=== PATIENT | female | born 1970 | race Caucasian/White ===

== ENCOUNTER 2018-12-26 09:52 | Emergency (ER) | payer OTHER, MEDICARE ==
[2018-12-26 10:23] VITALS: BP 116/78
[2018-12-26] MEDS ORDERED: Acetaminophen TAB* 325 MG PO ONE (10:48)
--- NOTE | 2018-12-26 10:52 | UC ---
FLU HPI - HPI Summary HPI Summary: 48-year-old female comes in with a chief complaint of fevers body aches chest heaviness and feeling very ill. Patient had upper respiratory tract infection symptoms little more than a week ago and was treated with Bactrim and she improved from that finished the Bactrim 2 days ago. Last evening had sudden onset of body aches and fevers and chest heaviness and overall feeling really bad. She does have a cough. She's not hearing any chest congestion. She does have asthma and has used her inhalers which does help with the cough some. She' s had Legionella pneumonia or than 10 years ago and had asthma ever since then. - History of Current Complaint Chief Complaint: UCRespiratory Stated Complaint: COUGH (HAS COPD) Time Seen by Provider: 12/26/18 10:28 Hx Last Menstrual Period: 08/2015 Pain Intensity: 5 - Allergy/Home Medications Allergies/Adverse Reactions: Allergies Allergy/AdvReac Type Severity Reaction Status Date / Time Penicillins Allergy Hives Verified 12/26/18 10:24 avoids NSAIDs Allergy Unknown Uncoded 12/26/18 10:44 Reaction Details Home Medications: Home Medications Albuterol HFA INHALER* [Ventolin HFA Inhaler*] 2 puff INH Q4H PRN 12/26/18 [ History Confirmed 12/26/18] Hydrocodone/Acetaminophen [Vicodin 5-300 mg Tablet] 1 each PO BID 12/26/18 [ History Confirmed 12/26/18] Sulfamethox/Trimethoprim DS* [Bactrim DS 800/160 TAB*] 1 tab PO BID 12/26/18 [ History Confirmed 12/26/18] PMH/Surg Hx/FS Hx/Imm Hx Previously Healthy: Yes Respiratory History: Asthma, Pneumonia GI/ History: Gastroesophageal Reflux - Surgical History Surgical History: Yes Surgery Procedure, Year, and Place: hysterectomy 08/2015; right rotator cuff, right thumb fx, anterior scalene muscle removed r/t thoracic outlet; right sphenous clot and subsequent removal, appy, cholecysectomy - Family History Known Family History: Negative: Cardiac Disease, Hypertension, Diabetes - Social History Alcohol Use: None Substance Use Type: None Smoking Status (MU): Former Smoker - Immunization History Most Recent Tetanus Shot: 2014 Review of Systems All Other Systems Reviewed And Are Negative: Yes Constitutional: Positive: Fever, Chills Skin: Positive: Negative Eyes: Positive: Negative ENT: Positive: Nasal Discharge Respiratory: Positive: Cough Cardiovascular: Positive: Other - CHEST PRESSURE Gastrointestinal: Positive: Negative Motor: Positive: Negative Neurovascular: Positive: Negative Musculoskeletal: Positive: Myalgia Neurological: Positive: Negative Psychological: Positive: Negative Is Patient Immunocompromised?: No Physical Exam Triage Information Reviewed: Yes Appearance: No Pain Distress, Well-Nourished, Ill-Appearing - MILD Vital Signs: Initial Vital Signs Temp 100.8 F 12/26/18 10:14 Pulse 105 12/26/18 10:14 Resp 24 12/26/18 10:14 BP 116/78 12/26/18 10:14 Pulse Ox 100 12/26/18 10:14 Vital Signs Reviewed: Yes ENT: Positive: Pharyngeal erythema, Nasal congestion, Nasal drainage, TMs normal Neck exam: Normal Neck: Positive: Supple Respiratory: Positive: Lungs clear, Normal breath sounds, No respiratory distress, Other: - DRY COUGH Cardiovascular: Positive: Tachycardia Musculoskeletal Exam: Normal Musculoskeletal: Positive: Strength Intact, ROM Intact Neurological Exam: Normal Neurological: Positive: Alert, Muscle Tone Normal Psychological Exam: Normal Psychological: Positive: Normal Response To Family, Age Appropriate Behavior Skin Exam: Normal Flu Course/Dx - Course Course Of Treatment: Patient Name: RAMON HENRY Medical Record#: [id number]. Ordering Physician: Guille Gill MD Acct.#: [id number]. : 1969 Age: 48 Sex: F Location: [facility]. Exam Date: 12/26/18 1030 ADM Status: REG ER. Order Information: CHEST PA LAT 2 VWS. Accession Number: [id number]. CPT: 50622. HISTORY: SOB,FEVER, COUGH. COMPARISONS: September. VIEWS: 4: Frontal dual-energy and lateral views of the chest. FINDINGS : CARDIOMEDIASTINAL SILHOUETTE: The cardiomediastinal silhouette is normal. HEENA: The heena are normal. PLEURA: The costophrenic angles are sharp. No pleural abnormalities are noted. LUNG PARENCHYMA: The lungs are clear. ABDOMEN : The upper abdomen is clear. There is no subphrenic gas. BONES AND SOFT TISSUES: Degenerative changes are noted along the spine. OTHER: None. IMPRESSION: NO ACTIVE CARDIOPULMONARY DISEASE. . <Electronically signed by Claude Jane MD in OV> 12/26/18 1044. I discussed the x-ray reports with the patient and her . Influenza was negative. Going to treat as a continued upper respiratory tract infection over the course of 10 days that is actually getting worse. Patient's prior history of pneumonia has for concerned of another pneumonia. Patient's allergic to penicillin. We discussed various antibiotic treatments that she personally on the Levaquin as this is what helped in the past. Also will do prednisone and she has albuterol inhaler. Follow-up with primary care doctor get reevaluated sooner if not improving or worse. - Differential Dx/Diagnosis Provider Diagnosis: Bronchitis, Asthma Discharge - Sign-Out/Discharge Documenting (check all that apply): Patient Departure All imaging exams completed and their final reports reviewed: Yes - Discharge Plan Condition: Stable Disposition: HOME Prescriptions: Benzonatate CAP* [Tessalon 100 MG CAP*] 100 mg PO TID PRN #20 cap PRN Reason: Cough Levofloxacin TAB* [Levaquin TAB*] 750 mg PO DAILY #7 tab predniSONE TAB* [Deltasone 20 MG TAB*] 40 mg PO DAILY #10 tab Patient Education Materials: Asthma (ED), Acute Bronchitis (ED) Referrals: [facility] [Outside] Additional Instructions: FOLLOW UP WITH YOUR DOCTOR IF NOT COMPLETELY IMPROVED. GO TO THE EMERGENCY DEPARTMENT FOR ANY WORSENING OF YOUR CONDITION OR QUESTIONS OR CONCERNS. - Billing Disposition and Condition Condition: STABLE Disposition: Home
[2018-12-26 10:58] LABS: Influenza A Molecular NEGATIVE (Negative); Influenza B Molecular NEGATIVE (Negative)
== END 2018-12-26 11:28 | disposition home or self-care (01) ==
LOC: UCCORT 09:52
DX: J45.909 Unspecified asthma, uncomplicated (principal); Z88.0 Allergy status to penicillin; Z88.8 Allergy status to other drugs, medicaments and biological substances; Z79.899 Other long term (current) drug therapy; Z87.891 Personal history of nicotine dependence
CPT/HCPCS: 71046; 99212; A9270-GY; G0463

== ENCOUNTER 2019-01-15 09:51 | Emergency (ER) | payer OTHER, MEDICARE ==
[2019-01-15 10:07] VITALS: BP 100/70
--- NOTE | 2019-01-15 10:40 | UC ---
Shortness of Breath HPI - HPI Summary HPI Summary: 48-year-old female presents with 2 week history of extreme fatigue. She states that she is having to take 2 hours every day and still sleeps through the night. She is also reporting that she has had some exertional shortness of breath. It was noted be most profound yesterday when she was attempting to climb a flight of 10 stairs and she had to rest while ascending. She states that she has also had some intermittent left arm pain as well as some intermittent nausea with 1-2 episodes of vomiting during the past 2 weeks. She states approximately one week ago she did have a temporary cap placed and has noted some left jaw pain since that time. Patient also recalls an episode a couple days ago where she felt as if "my blood sugar dropped out" because she had a feeling as if she was going to pass out. She states she rested and ate a candy bar with some improvement in her symptoms. She has had hypertension in the past however has been off medications since having a gastric bypass and losing weight. Denies fever, chills, dizziness, lightheadedness, cough, palpitations, chest pain, or abdominal pain. - History of Current Complaint Chief Complaint: UCGeneralIllness Stated Complaint: FATIGUE,SWOLLEN GLANDS Time Seen by Provider: 01/15/19 10:17 Hx Obtained From: Patient Hx Last Menstrual Period: 08/2015 - Allergy/Home Medications Allergies/Adverse Reactions: Allergies Allergy/AdvReac Type Severity Reaction Status Date / Time Penicillins Allergy Hives Verified 01/15/19 10:07 avoids NSAIDs Allergy Unknown Uncoded 01/15/19 10:07 Reaction Details PMH/Surg Hx/FS Hx/Imm Hx Cardiovascular History: Hypertension Respiratory History: Asthma GI/ History: Gastroesophageal Reflux Neurological History: Migraine Psychological History: Depression - Surgical History Surgical History: Yes Surgery Procedure, Year, and Place: hysterectomy 08/2015; right rotator cuff, right thumb fx, anterior scalene muscle removed r/t thoracic outlet; right sphenous clot and subsequent removal, appy, cholecysectomy - Family History Known Family History: Positive: Cardiac Disease - Mother [place] age 70 Negative: Hypertension, Diabetes, Respiratory Disease - Social History Occupation: Disabled Lives: With Family Alcohol Use: None Substance Use Type: None Smoking Status (MU): Light Every Day Tobacco Smoker Type: Cigarettes - Immunization History Most Recent Tetanus Shot: 2014 Review of Systems All Other Systems Reviewed And Are Negative: Yes Constitutional: Positive: Fatigue. Negative: Fever, Chills Skin: Negative: Rash ENT: Positive: Dental Pain. Negative: Sore Throat, Ear Ache, Nasal Discharge, Sinus Congestion, Sinus Pain/Tenderness Respiratory: Positive: Shortness Of Breath. Negative: Cough Cardiovascular: Positive: Other - Exertional dyspnea. Negative: Palpitations, Chest Pain Gastrointestinal: Positive: Vomiting, Nausea. Negative: Abdominal Pain, Diarrhea Genitourinary: Positive: Negative Musculoskeletal: Positive: Negative Neurological: Positive: Negative Is Patient Immunocompromised?: No Physical Exam - Summary Physical Exam Summary: GENERAL APPEARANCE: Well developed, overweight, alert and cooperative, and appears to be in no acute distress. EYES: Conjunctiva clear. No drainage. Vision is grossly intact. EARS: External auditory canals and tympanic membranes clear, hearing grossly intact. NOSE: No nasal discharge. THROAT: Pharynx normal No tonsilar inflammation, swelling, exudate, or lesions. Uvula midline. Oral cavity normal. Teeth and gingiva in good general condition. NECK: Neck supple, non-tender without lymphadenopathy. CARDIAC: Normal S1 and S2. No S3, S4 or murmurs. Rhythm is regular. There is no peripheral edema, cyanosis or pallor. Extremities are warm and well perfused. Capillary refill is less than 2 seconds. Peripheral pulses intact. LUNGS: Clear to auscultation without rales, rhonchi, wheezing or diminished breath sounds. ABDOMEN: Positive bowel sounds. Soft, nondistended, nontender. No guarding or rebound. No masses or hepatosplenomegally. MUSKULOSKELETAL: ROM intact to all extremities. No joint erythema or tenderness. Normal muscular development. Normal gait. SKIN: Skin normal color, texture and turgor with no lesions or eruptions. Triage Information Reviewed: Yes Vital Signs: Initial Vital Signs Temp 97.8 F 01/15/19 09:59 Pulse 92 01/15/19 09:59 Resp 18 01/15/19 09:59 BP 100/70 01/15/19 09:59 Pulse Ox 100 01/15/19 09:59 Vital Signs Reviewed: Yes Diagnostics - EKG Cardiac Rate: NL - Rate 81 Cardiac Rhythm: Sinus: Normal Ectopy: None ST Segment: Normal EKG Comparison: Other - No previous for comparison Summary of EKG Findings: NSR without ectopy, SERA, or T-wave abnormalities. Machine reads left axis deviation. Abnormal R-wave progression V1-V6. Shortness of Breath Dx - Course Course Of Treatment: 48-year-old female presents with 2 week history of extreme fatigue. She states that she is having to take 2 hours every day and still sleeps through the night. She is also reporting that she has had some exertional shortness of breath. It was noted be most profound yesterday when she was attempting to climb a flight of 10 stairs and she had to rest while ascending. She states that she has also had some intermittent left arm pain as well as some intermittent nausea with 1-2 episodes of vomiting during the past 2 weeks. She states approximately one week ago she did have a temporary cap placed and has noted some left jaw pain since that time. Patient also recalls an episode a couple days ago where she felt as if "my blood sugar dropped out" because she had a feeling as if she was going to pass out. She states she rested and ate a candy bar with some improvement in her symptoms. She has had hypertension in the past however has been off medications since having a gastric bypass and losing weight. Denies fever, chills, dizziness, lightheadedness, cough, palpitations, chest pain, or abdominal pain. Afebrile. Vital signs stable. Exam reveals an adult female in no acute distress with an overall unremarkable exam. Twelve-lead EKG was obtained which showed a normal sinus rhythm at a rate of 81 with no ectopy, ST elevation, T-wave abnormalities. There was abnormal R-wave progression through the V leads and a machine read left axis deviation. No previous EKG available for comparison. Based on the patient's history I am recommending that she go immediately to the emergency room for evaluation. She is agreeable to this and is electing to go by private vehicle at this time. - Differential Dx/Diagnosis Differential Diagnosis/HQI/PQRI: [place], Unstable Angina, Other - Electrolyte imbalance, Provider Diagnosis: Exertional dyspnea, Fatigue - Physician Notification/Consults Discussed Patient Care With: SPENCER Dougherty Time Discussed With Above Provider: 10:50 Instructed by Provider To: MD Will See In ED Discharge - Sign-Out/Discharge Documenting (check all that apply): Patient Departure All imaging exams completed and their final reports reviewed: No Studies - Discharge Plan Condition: Stable Disposition: HOME-RECOMMEND TO ED Patient Education Materials: Dyspnea (ED) Referrals: No Primary Care Phys,NOPCP [Primary Care Provider] - Additional Instructions: Your EKG performed in the clinic today did not show any acute changes but did have some non-specific changes that with your history I feel should be further evaluated in the emergency room. Go directly to [facility] emergency room from here. - Billing Disposition and Condition Condition: STABLE Disposition: Home-Recommend to ED
== END 2019-01-15 10:52 | disposition home health service (06) ==
LOC: UCCORT 09:51
DX: R53.83 Other fatigue (principal); R06.09 Other forms of dyspnea; I10 Essential (primary) hypertension; J45.909 Unspecified asthma, uncomplicated; F17.210 Nicotine dependence, cigarettes, uncomplicated; M79.602 Pain in left arm; R11.2 Nausea with vomiting, unspecified; Z98.84 Bariatric surgery status; Z88.8 Allergy status to other drugs, medicaments and biological substances; Z88.0 Allergy status to penicillin
CPT/HCPCS: 99211; G0463